=== PATIENT | female | born 1995 | race Caucasian/White ===

== ENCOUNTER 2017-03-16 00:20 | Emergency (ER) | payer BC ==
--- NOTE | 2017-03-16 00:53 | ERNOTE ---
Abdominal HPI - Narrative Date of Service: 03/16/17 - General Chief Complaint: Abdominal Pain Time Seen by Provider: 03/16/17 00:44 Source: patient Exam Limitations: no limitations - Immun/Allergies/Home Medications Immunizatons: IMMUNIZATION HX Immunizations Up to Date Yes History of Influenza Vaccine No Allergies/Adverse Reactions: Allergies hydrocodone Allergy (Verified 07/15/16 14:58) Home Medications: HOME MEDICATIONS Propranolol HCl [Inderal] 10 mg PO DAILY 07/14/16 [Last Taken Unknown] valACYclovir HCL [Valtrex] 500 mg PO DAILY 07/14/16 [Last Taken Unknown] Ondansetron HCl [Zofran] 4 mg PO Q4H PRN #30 tablet 07/15/16 [Last Taken Unknown ] - History of Present Illness Narrative: Has been having abdominal pain for last week. It has been diffuse and she thought she was constipated. Had BM's but no improvement. Today pain moved to epigastric location and was worse with deep inspiration. No fever, chills. Had some vaginal spotting today but no due to have a period for 5 days. Had some nasuea earlier. Pain was worse with standing or moving. Review of Systems - Review of Systems Constitutional: Present: no symptoms reported ENT: Present: no symptoms reported Respiratory: Present: no symptoms reported Cardiology: Present: no symptoms reported Gastrointestinal/Abdominal: Present: See HPI Genitourinary: Present: no symptoms reported Musculoskeletal: Present: no symptoms reported Skin: Present: no symptoms reported Neurological: Present: no symptoms reported - Patient's Past Medical History Patient History - Medical: Migraines, Other Patient History - Cardiac/Respiratory: Hypertension Patient History - Cancer: No Hx of Cancer Patient History - Surgical Procedures: No surgical history Patient History - Other: None LMP (females 10-50): 1 month LMP (Calendar): 06/28/16 - Social History Living Situations: spouse Abuse History: No History of abuse Psych History: No pertinent hx Smoking Status: Never smoker Alcohol Use: none Drug Use: none - Immunizations Immunizations Up to Date: Yes History of Influenza Vaccine: No Physical Exam - Physical Exam General Appearance: Present: wd/wn, alert, no apparent distress Eye Exam: Normal inspection: bilateral Ears, Nose, Throat: Present: normal ENT inspection Neck: Present: normal inspection Respiratory: Present: normal breath sounds, lungs clear Cardiovascular/Chest: Present: regular rate, rhythm, no murmur Gastrointestinal/Abdominal: Present: soft, no organomegaly, other - minimal tenderness both lower quadrants with deep palpation.. Absent: guarding, rebound Extremity Exam: Present: normal inspection, non-tender, no edema Neurological Exam: Present: alert, oriented, normal mood/affect ED Progress - Results and Orders Patient's Lab Results:: I have reviewed the patient's lab results. - Vital Signs Patient's Vital Signs:: I have reviewed the patient's vital signs. Vital Signs: Vital Signs 03/16/17 00:35 Temperature 36.8 C Pulse Rate 78 Respiratory 14 Rate Blood Pressure 128/78 O2 Sat by Pulse 96 Oximetry - X-Ray X-Ray #1 X-Ray: abdomen - Constipation - Progress/Reassessment Chief Complaint: Abdominal Pain Plan - Plan Plan: Home Stool softners Diet regulation Departure - Departure Clinical Impression: Constipation Disposition: Home self-care Instructions: Constipation, Adult, [id number] Additional Instructions: Colace 200 mg twice a day up to four times a day. Liquid diet x 48 hours If no regular soft formed BM after 48 hours may use mag citrate 2 oz. three times a day Follow up with PCP
[2017-03-16 01:01] LABS: Hemoglobin 12.9 gm/dL (12.5-16.0); Mean Cell Volume 90.5 fl (78-100); Mean Corpuscular Hemoglobin 29.9 pg (27-31); Mean Corpuscular Hgb Conc 33.1 g/dl (32-36); Mean Platelet Volume 8.9 fl (6.0-9.5); Neutrophil # 3.1 K/mm3 (1.3-6.0); Neutrophil % 37.3 % (42-75.0); Platelet Count 333 K/mm3 (150-450); Red Blood Count 4.31 M/mm3 (4.2-5.4); Red Cell Distribution Width 12.3 % (11.5-14.0); White Blood Count 8.2 K/mm3 (4.0-10.5)
[2017-03-16 01:16] LABS: Urine Bilirubin Negative (NEGATIVE); Urine Blood Negative /ul (NEGATIVE); Urine Ketone Negative (NEGATIVE); Urine Nitrite Negative (NEGATIVE); Urine Protein Negative (NEGATIVE); Urine Urobilinogen Normal (NORMAL)
[2017-03-16 01:25] LABS: Albumin * 3.8 gm/dl (3.4-5.0); BUN/Creatinine Ratio 13.7 (9.0-21.6); Bilirubin, Total 0.1 mg/dL (0.0-1.1); Ca. Corrected For Albumin 9.2 mg/dL (8.4-10.2); Calcium * 9.4 mg/dL (7.9-10.9); Carbon Dioxide 27.3 mmol/L (24-32.6); Potassium 4.3 mmol/L (3.4-4.6)
[2017-03-16 01:30] LABS: Urine Appearance Clear; Urine Bacteria None Seen; Urine Color Pale Yellow; Urine RBC 0-5 /hpf (0-5); Urine WBC 0-5 /hpf (0-5)
--- OUTSIDE RECORDS SUMMARY | 2017-03-16 01:43 | XMS REPORT | Continuity of Care Document ---
:1995 Author Organization [employer] [place] [address] Care Team Providers Name Role Phone Tisha Luna Primary Care Provider [phone] Source Comments This disclosure is being made pursuant to the [place] program and maynot contain all information available regarding this patient.[employer] Active Allergies and Adverse Reactions No Known Allergies Current Medications Be aware that medications may not be up to date as of this document. Alwaysverify current medications with the patient. Prescription Sig. Disp. Refills Start Date End Date Status acyclovir (ZOVIRAX) 400 Take 1 tablet by 06/15/2016 Active MG tablet mouth 3 (three) times daily as needed. 10/22 1-20 MG-MCG Take 1 tablet by 07/24/2016 Active per tablet mouth daily. propranolol (INDERAL) 10 Take 10 mg by 05/28/2016 Active MG tablet mouth daily. fluconazole (DIFLUCAN) Take one tablet 2 tablet 0 08/19/2016 Active 150 MG tablet today and repeat again in three days Active Problems Not on file Social History Tobacco Use Types Packs/Day Years Used Date Never Smoker Smokeless Tobacco: Never Used Alcohol Use Drinks/Week oz/Week Comments Yes occasional Last Filed Vital Signs Vital Sign Reading Time Taken Blood Pressure 118/60 08/19/2016 10:35 AM [employer] Pulse 78 08/19/2016 10:35 AM [employer] Temperature - - Respiratory Rate - - Height 1.664 m (5' 5.5") 08/19/2016 10:35 AM [employer] Weight 63.504 kg (140 lb) 08/19/2016 10:35 AM [employer] Body Mass Index 22.93 08/19/2016 10:35 AM [employer] Oxygen Saturation - - Plan of Care Date Type Specialty Providers Description 03/17/2017 Appointment Family Medicine Giles Connlel, [employer] [address] [place] [phone] (Fax) Health Maintenance Due Date Last Done Comments HPV Vaccine (9-26YO) (1 of 3 - Female 3 Dose Series) 2006 Chlamydia Screening 2011 Meningococcal Vaccine (1 of 1) 2011 Tetanus/Pertussis (1 - Tdap) 2014 Influenza Immunization (#1) 2016 Pap Smear 08/19/2019 08/19/2016 Results from Last 3 Months Not on file
--- OUTSIDE RECORDS SUMMARY | 2017-03-16 01:43 | XMS REPORT | Continuity of Care Document ---
:1995 Demographics Phone Unavailable Preferred Language Unknown Marital Status Unknown Taoism Affiliation Unknown Race Unknown Ethnic Group Unknown Author Organization [facility] ([facility]) [place] [address] Phone [phone] Care Team Providers Name Role Phone Unavailable Primary Care Provider Unavailable Source Comments This disclosure is being made pursuant to the Care Everywhere program, applicable federal and state laws, and may not contain all informaitonavailable regarding this patient.[facility] ([facility]) Active Allergies and Adverse Reactions Not on File Current Medications Not on file Active Problems Not on file Social History Tobacco Use Types Packs/Day Years Used Date Never Assessed Plan of Care Health Maintenance Due Date Last Done Comments Hepatitis B Vaccine (1 of 3 - Primary Series) 1995 HPV Vaccine (1 of 3 - Female/Unknown 3 Dose Series) 2006 Tdap Vaccine 2006 Meningococcal Vaccine (1 of 1) 2011 Cervical Cancer Screening 2013 Lipid Disorder Screening 2013 MMR Vaccine 2013 Td Vaccine 2013 Varicella Vaccine (1 of 2 - Adult - No Evidence of 2013 Immunity) Influenza Vaccine: Seasonal (#1) 05/03/2016 Results from Last 3 Months Not on file
[2017-03-16 01:45] VITALS: BP 129/71
== END 2017-03-16 02:05 | disposition home or self-care (01) ==
LOC: ER 00:20
DX: K59.00 Constipation, unspecified (principal); I10 Essential (primary) hypertension